=== PATIENT | female | born 1995 | race American Indian/Alaskan Native ===

== ENCOUNTER 2020-11-12 12:48 | Emergency (ER) | payer SELFPAY ==
[2020-11-12 13:23] VITALS: BP 158/107
[2020-11-12] MEDS ORDERED: oxyCODONE /ACETAMINOPHEN 5-325MG TAB PO ONE (13:23)
[2020-11-12] MEDS ORDERED: IBUPROFEN 800 MG TAB PO ONE (13:23)
--- NOTE | 2020-11-12 13:27 | Emergency Department Report ---
ED General Adult HPI - General Chief complaint: Dental/Oral Stated complaint: TOOTH PAIN/SWELLING Time Seen by Provider: 11/12/20 13:23 Source: patient Mode of arrival: Ambulatory Limitations: No Limitations - History of Present Illness Initial comments: 25-year-old -[place] female patient presents with complaints of left lower dental pain x4 days. She states history of infection in the area and a wisdom tooth that needs to be removed. She denies any fever/chills/sweats, difficulty opening her jaw, voice changes, or dysphagia. She does admit to mild facial swelling without redness. Patient rates her pain as a 10/10 in severity. She states she has contacted a dental specialist for further evaluation - Related Data Previous Rx's Medication Instructions Recorded Last Taken Type Acetaminophen/Codeine [Tylenol 1 tab PO Q8H PRN #12 tab 11/12/20 Unknown Rx /Codeine # 3 tab] Ibuprofen [Motrin 800 MG tab] 800 mg PO Q8HR PRN #21 tablet 11/12/20 Unknown Rx Penicillin V Potassium 500 mg PO QID #28 tablet 11/12/20 Unknown Rx Allergies Allergy/AdvReac Type Severity Reaction Status Date / Time No Known Allergies Allergy Unverified 11/12/20 13:20 ED Review of Systems ROS: Stated complaint: TOOTH PAIN/SWELLING Other details as noted in HPI Constitutional: denies: chills, fever, malaise ENT: dental pain. denies: throat pain Respiratory: denies: cough, shortness of breath Cardiovascular: denies: chest pain Skin: denies: change in color Neurological: denies: headache, weakness ED Past Medical Hx - Past Medical History Previous Medical History?: Yes Hx Psychiatric Treatment: Yes (anxiety,Bipolor, ADHD) - Social History Smoking Status: Never Smoker Substance Use Type: None - Medications Home Medications: Home Medications Medication Instructions Recorded Confirmed Last Taken Type Acetaminophen/Codeine [Tylenol 1 tab PO Q8H PRN #12 tab 11/12/20 Unknown Rx /Codeine # 3 tab] Ibuprofen [Motrin 800 MG tab] 800 mg PO Q8HR PRN #21 tablet 11/12/20 Unknown Rx Penicillin V Potassium 500 mg PO QID #28 tablet 11/12/20 Unknown Rx ED Physical Exam - General Limitations: No Limitations General appearance: alert, in no apparent distress - Head Head exam: Present: atraumatic, normocephalic - Eye Eye exam: Present: normal appearance. Absent: scleral icterus - Expanded ENT Exam Expanded Mouth exam: Present: tongue normal. Absent: drooling, trismus, muffled voice 1 - Dental Tenderness (Mild surrounding erythema of the gums noted with mild swelling of the face overlying the area without cellulitis; no obvious dental abscess noted) Throat exam: Positive: normal inspection - Neck Neck exam: Present: full ROM. Absent: tenderness - Respiratory Respiratory exam: Absent: respiratory distress - Cardiovascular Cardiovascular Exam: Present: regular rate - Neurological Exam Neurological exam: Present: alert, oriented X3, normal gait - Psychiatric Psychiatric exam: Present: normal affect, normal mood - Skin Skin exam: Present: warm, dry, intact, normal color. Absent: rash ED Course Vital Signs 11/12/20 13:21 Temperature 97.9 F Pulse Rate 85 Respiratory 18 Rate Blood Pressure 158/107 [Right] O2 Sat by Pulse 100 Oximetry ED Medical Decision Making - Medical Decision Making 25-year-old -[place] female patient presents with complaints of left lower dental pain x4 days. She states history of infection in the area and a wisdom tooth that needs to be removed. She denies any fever/chills/sweats, difficulty opening her jaw, voice changes, or dysphagia. She does admit to mild facial swelling without redness. Patient rates her pain as a 10/10 in severity. She states she has contacted a dental specialist for further evaluation Will treat with penicillin and pain medication. Patient provided with dental specialist list and informed to follow-up within 2 days for further evaluation and treatment. Discussed signs and symptoms that should prompt immediate return to the emergency department in detail with patient who verbalizes understanding. Blood pressure noted to be elevated, patient states history of anxiety and ADHD. Recommend follow-up with primary care within 2 days for blood pressure recheck. She is well-appearing and stable for discharge home. Critical care attestation.: If time is entered above; I have spent that time in minutes in the direct care of this critically ill patient, excluding procedure time. ED Disposition Clinical Impression: Pain, dental High blood pressure Qualifiers: Hypertension type: unspecified Qualified Code(s): I10 - Essential (primary) hypertension Disposition: DC- TO HOME OR SELFCARE Is pt being admited?: No Condition: Stable Instructions: Dental Abscess, Hypertension (ED), Hypertension, Adult, [id number] Additional Instructions: Please follow-up with a dental specialist from the list provided within 2 days. Prescriptions: Ibuprofen [Motrin 800 MG tab] 800 mg PO Q8HR PRN #21 tablet PRN Reason: Pain, Moderate (4-6) Penicillin V Potassium 500 mg PO QID #28 tablet Acetaminophen/Codeine [Tylenol /Codeine # 3 tab] 1 tab PO Q8H PRN #12 tab PRN Reason: Pain , Severe (7-10) Forms: Work/School Release Form(ED)
== END 2020-11-12 15:15 | disposition home or self-care (01) ==
LOC: EDBD → ED 12:48
DX: K08.89 Other specified disorders of teeth and supporting structures (principal); I10 Essential (primary) hypertension; F41.9 Anxiety disorder, unspecified; F32.9 Major depressive disorder, single episode, unspecified
CPT/HCPCS: 99282

== ENCOUNTER 2022-02-01 15:54 | Emergency (ER) | payer SELFPAY ==
[2022-02-01] MEDS ORDERED: LIDOCAINE (1%) 10 MG/1 ML VIAL 20 ML MDV INFILTRATI ONE (18:03)
[2022-02-01] MEDS ORDERED: SULFAMETHOXAZOLE/TRIMETHOPRIM 800/160MG DS TAB PO ONE (19:07)
[2022-02-01] MEDS ORDERED: KETOROLAC 10 MG TAB PO ONE (19:08)
[2022-02-01] MEDS ORDERED: ACETAMINOPHEN W/CODEINE 300-30 MG TAB PO ONE (19:08)
--- NOTE | 2022-02-01 19:10 | Emergency Department Report ---
- General Chief complaint: Skin/Abscess/Foreign Body Stated complaint: CYST LT UPPER CHEEK Time Seen by Provider: 02/01/22 17:11 Source: patient Mode of arrival: Ambulatory Limitations: No Limitations - History of Present Illness Initial comments: 26-year-old black female with no past medical history presents to the emergency department for evaluation of few day history of worsening left buttock abscess. She denies fever, abdominal pain, nausea or vomiting, and fatigue. She states that she was seen at urgent care for same but did not get any treatment. MD complaint: abscess/boil -: Gradual, days(s) (2-3) Tetanus Up to Date: yes Location: buttocks (Left) Severity: severe Severity scale (0 -10): 10 Quality: aching Consistency: constant Worsens with: movement Associated symptoms: denies other symptoms Treatments Prior to Arrival: none - Related Data Previous Rx's Medication Instructions Recorded Last Taken Type Acetaminophen/Codeine [Tylenol 1 tab PO Q8H PRN #12 tab 11/12/20 Unknown Rx /Codeine # 3 tab] Ibuprofen [Motrin 800 MG tab] 800 mg PO Q8HR PRN #21 tablet 11/12/20 Unknown Rx Penicillin V Potassium 500 mg PO QID #28 tablet 11/12/20 Unknown Rx Acetaminophen/Codeine [Tylenol 1 tab PO Q6H PRN #12 tab 02/01/22 Unknown Rx /Codeine # 3 tab] Naproxen [Naprosyn] 500 mg PO BID #14 tab 02/01/22 Unknown Rx Sulfamethoxazole/Trimethoprim 1 each PO BID #14 tab 02/01/22 Unknown Rx [Bactrim DS TAB] Allergies Allergy/AdvReac Type Severity Reaction Status Date / Time No Known Allergies Allergy Unverified 11/12/20 13:20 Abscess Boil HPI - HPI Chief Complaint: Skin/Abscess/Foreign Body Stated Complaint: CYST LT UPPER CHEEK Time Seen by Provider: 02/01/22 17:11 Home Medications: Previous Rx's Medication Instructions Recorded Last Taken Type Acetaminophen/Codeine [Tylenol 1 tab PO Q8H PRN #12 tab 11/12/20 Unknown Rx /Codeine # 3 tab] Ibuprofen [Motrin 800 MG tab] 800 mg PO Q8HR PRN #21 tablet 11/12/20 Unknown Rx Penicillin V Potassium 500 mg PO QID #28 tablet 11/12/20 Unknown Rx Acetaminophen/Codeine [Tylenol 1 tab PO Q6H PRN #12 tab 02/01/22 Unknown Rx /Codeine # 3 tab] Naproxen [Naprosyn] 500 mg PO BID #14 tab 02/01/22 Unknown Rx Sulfamethoxazole/Trimethoprim 1 each PO BID #14 tab 02/01/22 Unknown Rx [Bactrim DS TAB] Allergies/Adverse Reactions: Allergies Allergy/AdvReac Type Severity Reaction Status Date / Time No Known Allergies Allergy Unverified 11/12/20 13:20 ED Review of Systems ROS: Stated complaint: CYST LT UPPER CHEEK Other details as noted in HPI Comment: All other systems reviewed and negative Constitutional: denies: chills, fever Respiratory: denies: shortness of breath, SOB with exertion Cardiovascular: denies: chest pain, palpitations Gastrointestinal: denies: abdominal pain, nausea, vomiting, diarrhea, hematemesis, melena, hematochezia Genitourinary: denies: urgency, dysuria Musculoskeletal: denies: back pain Skin: denies: rash, lesions Neurological: denies: headache, weakness ED Past Medical Hx - Past Medical History Previous Medical History?: Yes Hx Psychiatric Treatment: Yes (anxiety,Bipolor, ADHD) - Surgical History Past Surgical History?: Yes Additional Surgical History: Spleen removed - Social History Smoking Status: Never Smoker Substance Use Type: None - Medications Home Medications: Home Medications Medication Instructions Recorded Confirmed Last Taken Type Acetaminophen/Codeine [Tylenol 1 tab PO Q8H PRN #12 tab 11/12/20 Unknown Rx /Codeine # 3 tab] Ibuprofen [Motrin 800 MG tab] 800 mg PO Q8HR PRN #21 tablet 11/12/20 Unknown Rx Penicillin V Potassium 500 mg PO QID #28 tablet 11/12/20 Unknown Rx Acetaminophen/Codeine [Tylenol 1 tab PO Q6H PRN #12 tab 02/01/22 Unknown Rx /Codeine # 3 tab] Naproxen [Naprosyn] 500 mg PO BID #14 tab 02/01/22 Unknown Rx Sulfamethoxazole/Trimethoprim 1 each PO BID #14 tab 02/01/22 Unknown Rx [Bactrim DS TAB] ED Physical Exam - General Limitations: No Limitations General appearance: alert, in no apparent distress - Head Head exam: Present: atraumatic, normocephalic - Eye Eye exam: Present: normal appearance. Absent: conjunctival injection - Neck Neck exam: Present: normal inspection - Respiratory Respiratory exam: Absent: respiratory distress - Cardiovascular Cardiovascular Exam: Present: regular rate - GI/Abdominal GI/Abdominal exam: Present: soft. Absent: distended - Back Exam Back exam: Present: normal inspection - Expanded Back Exam Expanded 1 - Abscess 3-1/2 cm in diameter. Noted to be tender and fluctuant to touch. No drainage or erythema noted. - Neurological Exam Neurological exam: Present: alert, oriented X3 - Psychiatric Psychiatric exam: Present: normal affect, normal mood - Skin Skin exam: Present: warm, dry, intact, normal color ED Course Vital Signs 02/01/22 02/01/22 16:21 20:11 Temperature 98.6 F Pulse Rate 79 78 Respiratory 16 16 Rate Blood Pressure 141/97 Blood Pressure 115/68 [Right] O2 Sat by Pulse 99 100 Oximetry - I & D Left Buttocks Site: Left buttocks near the gluteal cleft Blade Size: 11 I & D Procedure: betadine prep Progress: Area thoroughly cleaned with Betadine, and then field block performed with 6 cc of 1% lidocaine without. After the area was anesthetized, it was cleaned again with Betadine then [address] with the 11 blade needle patient noted to have a copious amounts of malodorous serosanguineous drainage. Area was expressed for moderate amounts of drainage. Then gauze applied. Patient tolerated well. ED Medical Decision Making - Medical Decision Making 26-year-old black female with no past medical history presents to the emergency department for evaluation of few day history of worsening left buttock abscess. She denies fever, abdominal pain, nausea or vomiting, and fatigue. She states that she was seen at urgent care for same but did not get any treatment. Exam significant for 3-1/2 cm abscess to the right buttocks near the gluteal cleft. Abscess noted to be fluctuant, so I&D performed for copious amounts of serosanguineous drainage. Patient tolerated procedure well. She was discharged home on 7-day course of Bactrim twice a day, naproxen twice daily for 7 days for inflammation, and Tylenol 3 to use as needed for pain. She was advised to monitor the area, take medications as prescribed. Follow-up with primary care provider or back to the ED if no improvement or worsening symptoms. She verbalized understanding of and agreement with plan of care. Critical care attestation.: If time is entered above; I have spent that time in minutes in the direct care of this critically ill patient, excluding procedure time. ED Disposition Clinical Impression: Abscess, gluteal, left Disposition: HOME / SELF CARE / HOMELESS Is pt being admited?: No Does the pt Need Aspirin: No Condition: Stable Instructions: Skin Abscess, [id number], Incision and Drainage, Care After Additional Instructions: Take medications as prescribed. Follow-up with primary care provider or ER if worsening symptoms or no improvement. Prescriptions: Sulfamethoxazole/Trimethoprim [Bactrim DS TAB] 1 each PO BID #14 tab Naproxen [Naprosyn] 500 mg PO BID #14 tab Acetaminophen/Codeine [Tylenol /Codeine # 3 tab] 1 tab PO Q6H PRN #12 tab PRN Reason: Pain , Severe (7-10) Referrals: ALISHA SANCHEZ MD [Referring] - 3-5 Days Time of Disposition: 19:10
[2022-02-01 20:13] VITALS: BP 115/68
== END 2022-02-01 20:11 | disposition home or self-care (01) ==
LOC: ED 15:54
DX: L02.31 Cutaneous abscess of buttock (principal); F31.9 Bipolar disorder, unspecified
CPT/HCPCS: 10060; 99282; J3490